=== PATIENT | female | born 1935 | race Caucasian/White ===

== ENCOUNTER 2017-03-25 11:53 | Emergency (ER) | payer OTHER, BC ==
[~2017-03-25] VITALS: Ht 152.4 cm; Wt 56.3 kg
[2017-03-25 12:41] LABS: MCH 29.4 PG (29.0-34.0); MCHC 32.9 G/DL (30.0-36.0); MCV 89.4 FL (83-99); MEAN PLAT.VOLUME 9.9 uM^3 (9.5-12.4); PLATELET COUNT 256 K/uL (156-360); RBC DIS.WIDTH-CV 14.1 % (11.8-14.6); RBC DIS.WIDTH-SD 45.7 % (39-53); WHITE BLOOD COUNT 6.7 K/uL (4.1-10.2)
[2017-03-25] MEDS ORDERED: PRAVASTATIN SOD40 MG PO (12:58)
[2017-03-25] MEDS ORDERED: FLONASE16 G1 BOTH NARES (12:58)
[2017-03-25] MEDS ORDERED: METHOTREXATE2.5 MG PO (12:58)
[2017-03-25] MEDS ORDERED: FOLIC ACID1 MG PO (12:59)
[2017-03-25] MEDS ORDERED: ASPIRIN81 M2 PO (12:59)
[2017-03-25] MEDS ORDERED: REMICADE10 MG/ML IV (13:00)
[2017-03-25] MEDS ORDERED: VITAMIN D-32000 UNI2 PO (13:00)
[2017-03-25] MEDS ORDERED: CALCIUM 600 +1 EA16 PO (13:01)
[2017-03-25 13:14] LABS: CHLORIDE 105 mEq/L (99-109); POTASSIUM 3.8 mEq/L (3.7-5.4); SODIUM 140 mEq/L (136-147)
[2017-03-25 13:15] LABS: GLUCOSE 110 mg/dL (70-99)
[2017-03-25 13:17] LABS: ANION GAP 9 MEQ/L (2-14)
[2017-03-25 13:19] LABS: GFR ESTIMATE (CALCULATED) > 59 mL/min/
[2017-03-25 13:20] LABS: UREA NITROGEN (BUN) 20 mg/dL (9-23)
[2017-03-25 14:01] LABS: TROP-I INTERPRETATION NEGATIVE; TROPONIN-I < 0.01 ng/mL (0.0-0.30)
[2017-03-25 14:07] LABS: ADD MIUA? YES; BILIRUBIN NEGATIVE; BLOOD NEGATIVE; COLOR YELLOW ((YELLOW)); GLUCOSE (STRIP) NEGATIVE; KETONES NEGATIVE; LEUKOCYTES NEGATIVE; NITRITE NEGATIVE; PROTEIN (STRIP) NEGATIVE; SPECIFIC GRAVITY 1.017 (1.000-1.030); UROBILINOGEN 0.2 MG/DL (0.2-1.0)
[2017-03-25 14:13] LABS: BACTERIA NONE SEEN /HPF; EPITHELIAL CELLS 1+ /HPF; MUCUS TRACE /LPF; RED BLOOD CELLS NONE SEEN /HPF (0-5); UCUL ADDED? NO; WHITE BLOOD CELLS NONE SEEN /HPF (0-5)
[2017-03-25 17:32] VITALS: BP 185/92
== END 2017-03-25 17:34 | disposition home or self-care (01) ==
LOC: EME 11:53
PROVIDERS: Emergency Medicine
DX: R53.1 Weakness (principal); H53.8 Other visual disturbances; R42 Dizziness and giddiness; R41.840 Attention and concentration deficit; R60.0 Localized edema; R91.8 Other nonspecific abnormal finding of lung field; E78.5 Hyperlipidemia, unspecified
CPT/HCPCS: 70450; 71020; 80048; 81003; 84484; 85027; 93005; 99281; 99285